=== PATIENT | male | born 1950 | race Caucasian/White ===

== ENCOUNTER 2017-03-20 10:51 | Day surgery (SDC) | payer OTHER ==
[2017-03-19 10:38] LABS: BLOOD UREA NITROGEN 14 mg/dL (7-18)
[2017-03-19 10:41] LABS: ASPARTATE AMINO TRANSFERASE 11 U/L (15-37)
[~2017-03-20] VITALS: Ht 180.3 cm; Wt 108.5 kg
[~2017-03-20 10:51] MED LIST: ALBU2.5V11 NEB; ALBU8.5H3 INH; ASPI-496 PO; ATOR80TA75 PO; BUPIVACAINE/PF-EPI 0.25% 1:200K ONE; CARV12.543 PO; CHOL40002 PO; CYAN2000 PO; EMPA10TA PO; FENO160T PO; FLUT15.812 NS; METF500T27 PO; MULT1CAP19 PO; OMEG100023 PO; SODI104S3 NS
[2017-03-20 11:11] VITALS: BP 166/103
[2017-03-20] MEDS ORDERED: LIDOCAINE 1%, 2ML ONE (11:11)
[2017-03-20] MEDS ORDERED: MIDAZOLAM 1 MG/ML, 2ML ONE (11:23)
[2017-03-20] MEDS ORDERED: FENTANYL PF 250 MCG/5ML ONE (11:23)
[2017-03-20] MEDS ORDERED: ACETAMINOPHEN 325 MG TABLET PO PRN (11:30)
[2017-03-20] MEDS ORDERED: LABETALOL 5MG/ML, 20ML IV PRN (11:30)
[2017-03-20] MEDS ORDERED: ALBUTEROL SULFATE 2.5 MG/3 ML NPPB PRN (11:30)
[2017-03-20] MEDS ORDERED: ONDANSETRON 2MG/ML, 2ML IVPush PRN (11:30)
[2017-03-20] MEDS ORDERED: MIDAZOLAM 1 MG/ML, 2ML IV PRN (11:30)
[2017-03-20] MEDS ORDERED: HYDROmorphone 1 MG/ML, 1ML IV PRN (11:30)
[2017-03-20] MEDS ORDERED: PROMETHAZINE 25 MG/ML, 1ML IV PRN (11:30)
[2017-03-20] MEDS ORDERED: FENTANYL PF 100 MCG/2ML IV PRN (11:30)
[2017-03-20] MEDS ORDERED: hydrALAzine 20 MG/ML, 1ML IV PRN (11:30)
[2017-03-20] MEDS ORDERED: OXYcodone 5 MG/5 ML ORAL.SOL UDC PO PRN (11:30)
[2017-03-20] MEDS ORDERED: MEPERIDINE/PF 25MG/0.5ML IVPush PRN (11:30)
[2017-03-20] MEDS ORDERED: LACTATED RINGERS 1,000 ML IV SCH (11:35)
[2017-03-20] MEDS ORDERED: FENTANYL PF 100 MCG/2ML ONE (13:17)
[2017-03-20] MEDS ORDERED: OXYcodone 5 MG/5 ML ORAL.SOL UDC ONE (13:18)
[2017-03-20] MEDS ORDERED: SUCCINYLCHOLINE 20 MG/ML, 10ML ONE (15:59)
[2017-03-20] MEDS ORDERED: DEXAMETHASONE 4 MG/ML, 1ML ONE (15:59)
[2017-03-20] MEDS ORDERED: GLYCOPYRROLATE 0.2MG/1ML ONE (15:59)
[2017-03-20] MEDS ORDERED: CEFAZOLIN 1,000 MG ONE (15:59)
[2017-03-20] MEDS ORDERED: NEOSTIGMINE 1 MG/ML, 10ML ONE (15:59)
[2017-03-20] MEDS ORDERED: KETOROLAC 30 MG/1 ML ONE (15:59)
[2017-03-20] MEDS ORDERED: ROCURONIUM 10 MG/ML ONE (15:59)
[2017-03-20] MEDS ORDERED: ONDANSETRON 2MG/ML, 2ML ONE (15:59)
[2017-03-20] MEDS ORDERED: PROPOFOL 10 MG/ML, 20ML ONE (15:59)
== END 2017-03-20 15:33 | disposition home or self-care (01) ==
LOC: OUT 10:51
PROVIDERS: ATTEND Surgery
DX: K40.90 Unilateral inguinal hernia, without obstruction or gangrene, not specified as recurrent (principal); I10 Essential (primary) hypertension; E78.5 Hyperlipidemia, unspecified; E11.9 Type 2 diabetes mellitus without complications; E66.9 Obesity, unspecified; Z68.33 Body mass index [BMI] 33.0-33.9, adult; Z98.818 Other dental procedure status; E78.00 Pure hypercholesterolemia, unspecified; Z82.49 Family history of ischemic heart disease and other diseases of the circulatory system; Z80.1 Family history of malignant neoplasm of trachea, bronchus and lung; Z72.89 Other problems related to lifestyle
CPT/HCPCS: 36415; 49505; 80053; 82962; C1781; J0330; J0690; J1100; J1885; J2250; J2405; J2704; J2710; J3010; J7120; J3490

== ENCOUNTER 2020-05-10 10:50 | Day surgery (SDC) | payer MEDICARE ==
[~2020-05-10] VITALS: Ht 180.3 cm; Wt 109.0 kg
[~2020-05-10 10:50] MED LIST changes: -ALBU8.5H3 INH; +ALBU8.5H8 INH; +AMLO5TAB4 PO; +ATOR-2 PO; -ATOR80TA75 PO; +BUPIVACAINE/PF 0.25% ONE; +CARV-39 PO; +CHOL10003 PO; +FENTANYL PF 100 MCG/2ML ONE; +ICOS1CAP PO; +LOSA50TA14 PO; +MIDAZOLAM 1 MG/ML, 2ML ONE; +ROSU40TA PO; +VIT1CAPS42 PO
[2020-05-10] MEDS ORDERED: LACTATED RINGERS 1,000 ML IV SCH (11:04)
[2020-05-10 11:07] VITALS: BP 152/96
[2020-05-10] MEDS ORDERED: CHLORHEXIDINE 15 ML UDC ONE (11:11)
[2020-05-10] MEDS ORDERED: CHLORHEXIDINE 15 ML UDC MM ONE (11:30)
[2020-05-10] MEDS ORDERED: SUCCINYLCHOLINE 20 MG/ML, 10ML ONE (11:40)
[2020-05-10] MEDS ORDERED: CEFAZOLIN 1,000 MG ONE (11:40)
[2020-05-10] MEDS ORDERED: ROCURONIUM 10 MG/ML,10ML ONE (11:40)
[2020-05-10] MEDS ORDERED: DEXAMETHASONE 4 MG/ML, 1ML ONE (11:40)
[2020-05-10] MEDS ORDERED: ONDANSETRON 2MG/ML, 2ML ONE (11:40)
[2020-05-10] MEDS ORDERED: PROPOFOL 10 MG/ML, 20ML ONE (11:40)
== END 2020-05-10 17:00 | disposition home or self-care (01) ==
LOC: OUT 10:50
PROVIDERS: ATTEND Orthopaedic Surgery
DX: S46.011A Strain of muscle(s) and tendon(s) of the rotator cuff of right shoulder, initial encounter (principal); Z11.59 Encounter for screening for other viral diseases; S46.111A Strain of muscle, fascia and tendon of long head of biceps, right arm, initial encounter; S43.431A Superior glenoid labrum lesion of right shoulder, initial encounter; M75.41 Impingement syndrome of right shoulder; M19.011 Primary osteoarthritis, right shoulder; I10 Essential (primary) hypertension; E11.9 Type 2 diabetes mellitus without complications; E78.5 Hyperlipidemia, unspecified; J45.909 Unspecified asthma, uncomplicated; E66.9 Obesity, unspecified; Z79.899 Other long term (current) drug therapy; W18.39XA Other fall on same level, initial encounter; X50.0XXA Overexertion from strenuous movement or load, initial encounter; Y93.89 Activity, other specified; Y92.59 Other trade areas as the place of occurrence of the external cause; Y99.8 Other external cause status
CPT/HCPCS: 29823; 29824; 29826; 29827; 29828; 64415; 82962; C1713; J0330; J0690; J1100; J2250; J2405; J2704; J3010; J3490; J7120; U0001

== ENCOUNTER → 2020-05-11 | Outpatient (CLI) | payer MEDICARE ==
[2020-05-09 10:11] LABS: ALANINE AMINOTRANSFERASE 39 U/L (12-78); ALBUMIN 3.8 g/dL (3.4-5.0); ANION GAP 12 mmol/L (5-15); CALCIUM 8.8 mg/dL (8.5-10.1); CHLORIDE 100 mmol/L (98-107); CREATININE 0.82 mg/dL (0.7-1.3)
[2020-05-09 10:13] LABS: ALKALINE PHOSPHATASE 67 U/L (45-117); BILIRUBIN,TOTAL 0.5 mg/dL (0.2-1.0); TOTAL PROTEIN 7.1 g/dL (6.4-8.2)
[~2020-05-11] MED LIST changes: -BUPIVACAINE/PF 0.25% ONE; -BUPIVACAINE/PF-EPI 0.25% 1:200K ONE; -FENTANYL PF 100 MCG/2ML ONE; -MIDAZOLAM 1 MG/ML, 2ML ONE
== END | disposition home or self-care (01) ==
LOC: STAR 05-09 09:14
PROVIDERS: ATTEND Orthopaedic Surgery
DX: Z01.818 Encounter for other preprocedural examination (principal); M19.011 Primary osteoarthritis, right shoulder; M75.41 Impingement syndrome of right shoulder; M75.121 Complete rotator cuff tear or rupture of right shoulder, not specified as traumatic
CPT/HCPCS: 36415; 80053; 93005